=== PATIENT | male | born 1960 | race Caucasian/White ===

== ENCOUNTER 2022-04-14 11:12 | Emergency (ER) | payer OTHER, SELFPAY ==
[2022-04-14 11:14] VITALS: BP 143/85; PULSE 75; RESP 16; TEMP 36.8; O2SAT 98; BMI 28.6
[2022-04-14 11:23] VITALS: BP 143/85; PULSE 75; RESP 16; TEMP 36.8; O2SAT 98
--- NOTE | 2022-04-14 11:30 | EX.ED.DYSGE1 ---
HPI History of Present Illness Chief Complaint: General Illness Detail of Chief Complaint: COVID Informant: patient Onset/Context/Timing Onset: Days Context: Gradual Onset Current Severity: Mild Maximum Severity: Moderate Narrative Narrative: Patient presents secondary to COVID symptoms. He was diagnosed with COVID 2 days ago. He had head congestion with headache and a mild sore throat. Minimal cough. He does not feel short of breath. He took Tylenol last night for his headache along with some NyQuil this morning. He states he has had a poor appetite and has not been eating as much is normal. PFSH PFSH Medical History no medical history no medical history Home Medications NK 04/14/22 [History Last Taken Unknown] Allergy/AdvReac Type Severity Reaction Status Date / Time No Known Allergies Allergy Verified 04/14/22 11:13 Surgical History no surgical history Social History Smoking Status: Never smoker ROS ROS ED Constitutional Constitutional ED: Reports chills and fever(s) Eyes Eyes: Denies change in vision or discharge from eye(s) ENT ENT ED: Reports sore throat and other Details: Congestion ; Denies discharge from eye(s) or rhinorrhea Cardiovascular Cardiovascular: Denies chest pain or palpitations Respiratory/Chest Respiratory/Chest: Reports cough; Denies dyspnea Gastrointestinal Gastrointestinal: Denies abdominal pain, diarrhea, nausea or vomiting Genitourinary Genitourinary ED: Denies difficulty urinating or dysuria Musculoskeletal Musculoskeletal: Reports myalgias; Denies back pain or extremity pain Integumentary Denies Abrasions or rash Neurologic Neurologic: Reports headache(s); Denies weakness Psychiatric Psychiatric: Denies anxiety or depression Endocrine Endocrinology: Denies polydipsia or polyuria Allergic/Immunologic Allergic/Immunologic ED: Denies lip swelling or urticaria EXAM Physical Exam Const Vital Signs: 04/14/22 11:14 04/14/22 11:23 04/14/22 11:23 Temperature 98.3 F 98.3 F Temperature Source Temporal Temporal Pulse Rate 75 75 Respiratory Rate 16 16 Respiratory Effort Normal Non-Labored Blood Pressure 143/85 H 143/85 H Blood Pressure Mean 104 Pulse Ox 98 98 Oxygen Delivery Method Room Air Room Air Positive well nourished and well developed General Appearance ED: well developed HEENT Reports normocephalic and head/scalp atraumatic Eyes PERRL and EOMs intact bilaterally Neck supple Chest Wall inspection of chest normal and palpation of chest normal Resp normal respiratory effort and clear to auscultation bilaterally Cardio regular rate and regular rhythm GI non-tender Auscultation: hypoactive bowel sounds Palpation: soft Extremity normal to inspection Neuro oriented x3 and no sensory deficits noted Sensorium / Orientation: alert Motor Exam: strength 5/5 throughout Psych mental status grossly normal Skin no rashes or lesions noted MDM MDM MDM Narrative Medical decision making narrative: Patient is given Toradol, Reglan, Benadryl, IV fluids. Lab work obtained. Lab Data Attestation: I reviewed the patient's lab results. Labs: Laboratory Results - last 24 hr 04/14/22 04/14/22 11:37 11:37 WBC 7.0 RBC 5.01 Hgb 15.7 Hct 46.5 MCV 92.8 MCH 31.3 MCHC 33.8 RDW Std Deviation 41.8 RDW Coeff of [place] 12.2 Plt Count 193 MPV 9.5 Immature Gran % (Auto) 1.300 H Neut % (Auto) 69.7 Lymph % (Auto) 15.7 L [place] % (Auto) 12.6 H Eos % (Auto) 0.3 Baso % (Auto) 0.4 Absolute Neuts (auto) 4.9 Absolute Lymphs (auto) 1.09 Nucleated RBC % 0 Sodium 138 Potassium 4.1 Chloride 105 Carbon Dioxide 28.0 Anion Gap 5 BUN 12 Creatinine 1.14 Estim Creat Clear Calc 64.42 Est GFR (MDRD) Af Amer 84 Est GFR (MDRD) Non-Af 70 BUN/Creatinine Ratio 10.5 Glucose 101 Calcium 9.1 Treatment and Re-Evaluation Narrative: Lab work largely unremarkable. On repeat evaluation patient resting comfortably. He does report some mild improvement in his symptoms. We did discuss the possibility of Paxlovid. He does not have significant risk factors. He is vaccinated and had 2 boosters. At this time he would like to just continue supportive care at home. Return instructions are provided. Discharge Plan Triage Chief Complaint: General Illness Other Complaint: Fever ED Provider: Neena Sears Dx/Rx/DC Orders Clinical Impression: COVID-19 Instructions: Coronavirus Disease 2019 (COVID-19): Overview, Coronavirus Disease 2019 (COVID-19): Caring for Yourself or Others Prescriptions: No Action NK Primary Care Provider: Kar Torres Referrals: Kar Torres MD [Primary Care Provider] - 1-2 Weeks Disposition Disposition: Home, Self Care
[2022-04-14] MEDS: 0.9% Normal Saline 1,000 ML 1000 ML IV (11:46)
[2022-04-14] MEDS: DiphenhydrAMINE 50 MG/ML Syringe 12.5 MG IV (11:47)
[2022-04-14] MEDS: Metoclopramide 10 MG/2 ML Vial 5 MG IV (11:47)
[2022-04-14] MEDS: Ketorolac 30 MG/ML Syringe IV (11:47)
[2022-04-14 11:50] LABS: Absolute Lymphocyte Count 1.09 X10^3/uL (0.83-4.51); Absolute Neutrophil Count 4.9 X10^3/uL (2.0-7.7); Basophil# 0.03 X10^3/uL; Basophil% 0.4 % (0-1); Eosinophil# 0.02 X10^3/uL; Eosinophils% 0.3 % (0-5); Hematocrit 46.5 % (40-54); Hemoglobin 15.7 g/dL (13.0-16.5); Lymphocyte # 1.09 X10^3/ul (0.83-4.51); Lymphocyte % 15.7 % (19-41); Mean Corp Hgb Conc 33.8 g/dL (32-36); Mean Corpuscular Hgb 31.3 pg (27.0-32.0); Mean Corpuscular Volume 92.8 fL (80-94); Mean Platelet Vol. 9.5 fl (6.2-12.0); Monocyte# 0.88 X10^3/uL; Monocyte% 12.6 % (0-10); NRBC Flagged by Analyzer 0 % (0-5); Neutrophil # 4.85 X10^3/uL (2.7-7.7); Neutrophil % 69.7 % (47-70); Platelet Count 193 K/mm3 (150-450); RBC Distribution Width CV 12.2 % (11.6-14.6); RBC Distribution Width SD 41.8 fl (35.1-43.9); Red Blood Count 5.01 M/mm3 (4.6-6.2)
[2022-04-14 11:57] LABS: Anion Gap 5 (5-15); BUN 12 mg/dL (7-18); BUN/Creat Ratio 10.5 RATIO (10-20); Calcium,Total 9.1 mg/dL (8.5-10.1); Chloride 105 mmol/L (98-107); Creatinine, Serum 1.14 mg/dL (0.70-1.30); EST Glomerular Filtration Rate 70 mL/min (>60); Est Glom Filt Rate - Afr Amer 84 mL/min (>60); Estimated Creatinine Clearance 64.42 ml/min; Glucose 101 mg/dL (74-106); Potassium 4.1 mmol/L (3.5-5.1); Sodium Level 138 mmol/L (136-145)
== END 2022-04-14 12:54 | disposition home or self-care (01) ==
PROVIDERS: Emergency Provider Emergency Medicine; PCP Family Medicine; Visit Provider Emergency Medicine
DX: U07.1 COVID-19 (principal)
CPT/HCPCS: 80048; 85025; 96361; 96374; 96375; 99282; A4216